=== PATIENT | female | born 1960 | race Asian ===

== ENCOUNTER 2019-04-03 06:38 | Day surgery (SDC) | payer MEDICAID ==
[~2019-04-03] VITALS: Ht 152.4 cm; Wt 81.8 kg
[~2019-04-03 06:38] MED LIST: FAMO20 PO; HYDR25TA PO; LOSA25TA41 PO; SODIUM CHLORIDE 0.9% 1,000 ML IV ONE
[2019-04-03] MEDS ORDERED: ALBUTEROL SULFATE 2.5 MG/0.5 ML NEB SOLUTION NEB ONE (06:39)
[2019-04-03] MEDS ORDERED: BENZOCAINE 20% 50 MCG/SPRAY 57 GM TP ONE (06:39)
[2019-04-03] MEDS ORDERED: LIDOCAINE 2% 30 ML JELLY TP ONE (06:39)
[2019-04-03] MEDS ORDERED: LIDOCAINE 4% 50 ML SOLUTION TP ONE (06:39)
[2019-04-03] MEDS ORDERED: SODIUM CHLORIDE 0.9% 1,000 ML IV ONE (07:00)
[2019-04-03] MEDS ORDERED: FentaNYL CITRATE-PF 100 MCG/2 ML VIAL ONE (08:06)
[2019-04-03] MEDS ORDERED: MIDAZOLAM HCL 2 MG/2 ML VIAL ONE (08:06)
[2019-04-03] MEDS ORDERED: MethylPREDNISolone SOD SUCC 125 MG/2 ML VIAL IVP ONE (09:00)
[2019-04-03] MEDS ORDERED: OXYGEN THERAPY IH SCH (20:00)
== END 2019-04-03 10:10 | disposition home or self-care (01) ==
LOC: SURGERY 06:38
PROVIDERS: ATTEND Internal Medicine Critical Care Medicine
DX: J38.4 Edema of larynx (principal); B37.0 Candidal stomatitis; I10 Essential (primary) hypertension; E78.00 Pure hypercholesterolemia, unspecified; Z98.890 Other specified postprocedural states
CPT/HCPCS: 31623; 31624; 71045; 87015; 87070; 87077; 87101; 87186; 87205; 87206; 87220; 88108; 88312; J2250; J2930; J3010; J7030